=== PATIENT | male | born 1995 | race Two or more races ===

== ENCOUNTER 2023-02-18 10:43 | Emergency (ER) | payer SELFPAY ==
[~2023-02-18] VITALS: Ht 177.8 cm; Wt 95.3 kg
[2023-02-18 10:54] VITALS: BP 137/86; TEMP 98.6; O2SAT 100
[2023-02-18] MEDS ORDERED: IBUPROFEN 400 MG TABLET ONE (11:22)
[2023-02-18] MEDS ORDERED: IBUPROFEN 400 MG TABLET PO ONE (11:30)
[2023-02-18] MEDS ORDERED: IBUP-1955 PO (12:25)
== END 2023-02-18 12:37 | disposition home or self-care (01) ==
LOC: ER 10:50
DX: M79.642 Pain in left hand (principal); Z79.899 Other long term (current) drug therapy; Z60.2 Problems related to living alone
CPT/HCPCS: 73120-TC